=== PATIENT | male | born 1940 | race Asian ===

== ENCOUNTER 2023-12-31 15:01 | Outpatient (CLI) | payer BC, MEDICARE | END 2023-12-31 15:02 | disposition home or self-care (01) | LOC: CSHMRI 15:01 | PROVIDERS: ATTEND Internal Medicine | DX: M54.50 Low back pain, unspecified (principal); Z98.890 Other specified postprocedural states; M51.36 Other intervertebral disc degeneration, lumbar region; M48.061 Spinal stenosis, lumbar region without neurogenic claudication | CPT/HCPCS: 72148 ==